=== PATIENT | male | born 1940 | race Caucasian/White ===

== ENCOUNTER → 2018-06-06 | Outpatient (CLI) | payer OTHER ==
[~2018-06-06] MED LIST: ADULT LOW DOSE81 MG PO; ATENOLOL PO; BACTRIM DS TAB1 EACH PO; FLUZONE 2045 MCG/011; HCTZ PO; PNEUMOVAX25 MCG/0.5; VICODIN 5-5001 EACH PO; ZESTRIL PO
== END ==
LOC: M.CT 08:18
DX: J98.4 Other disorders of lung (principal); R91.8 Other nonspecific abnormal finding of lung field; K80.20 Calculus of gallbladder without cholecystitis without obstruction

== ENCOUNTER → 2020-07-27 | Outpatient (CLI) | payer OTHER | LOC: M.ULTRA 08:52 | PROVIDERS: ATTEND Family Medicine | DX: R09.89 Other specified symptoms and signs involving the circulatory and respiratory systems (principal) ==

== ENCOUNTER → 2021-02-21 | Outpatient (CLI) | payer OTHER | LOC: M.LAB 13:04 | PROVIDERS: ATTEND Internal Medicine Gastroenterology | DX: Z01.812 Encounter for preprocedural laboratory examination (principal); Z20.822 Contact with and (suspected) exposure to COVID-19; E87.6 Hypokalemia ==